=== PATIENT | female | born 1975 | race Caucasian/White ===

== ENCOUNTER → 2024-12-13 | Outpatient (CLI) | payer BC, SELFPAY ==
[2024-12-13 09:40] LABS: Basophils # (Auto) 0.1 Thou/mm3 (0.0-0.2); Basophils % (Auto) 1 % (0-2.5); Eosinophils # (Auto) 0.1 Thou/mm3 (0.0-0.5); Eosinophils % (Auto) 2 % (0-10); Hematocrit 41.1 % (36.0-46.0); Hemoglobin 14.1 g/dL (12.0-16.0); Immature Granulocytes % (Auto) 0 % (0-0); Immature Granulocytes Auto 0.01 Thou/mm3 (0.00-0.00); Lymphocytes # (Auto) 2.3 Thou/mm3 (1.0-4.8); Lymphocytes % (Auto) 37 % (10-50); Mean Corpuscular HGB Conc 34.3 g/dl (31.0-37.0); Mean Corpuscular Volume 85 fL (80-100); Monocytes # (Auto) 0.5 Thou/mm3 (0.0-0.8); Monocytes % (Auto) 8 % (0-12); Neutrophils # (Auto) 3.1 Thou/mm3 (1.8-7.7); Neutrophils % (Auto) 52 % (37-80); Nucleated Red Blood Cell % 0 /100 WBC (0); Platelet Count 288 Thou/mm3 (140-440); RDW Standard Deviation 37.8 fL (36.4-46.3); Red Blood Count 4.86 Miln/mm3 (4.00-5.20); White Blood Count 6.1 Thou/mm3 (3.6-11.0)
[2024-12-13 09:50] LABS: Glucose Estimated Average 91 mg/dL (80-131); Hemoglobin A1C 4.8 % Hgb (4.8-6.0)
[2024-12-13 09:54] LABS: Collection Type, Urine Clean Catch
[2024-12-13 10:01] LABS: Alanine Aminotransferase 16 U/L (10-49); Albumin, Serum 4.4 gm/dL (3.5-5.0); Albumin/Globulin Ratio 1.9 (1.2-2.2); Alkaline Phosphatase 78 U/L (46-116); Anion Gap 12 (7-16); Aspartate Amino Transferase 16 U/L (0-34); BUN/Creatinine Ratio 10 Ratio (12-20); Bilirubin,Total 0.4 mg/dL (0.3-1.2); Blood Urea Nitrogen 8 mg/dL (9-23); Calcium 8.7 mg/dL (8.3-10.6); Calcium (Corrected) 8.7 mg/dL (8.5-10.1); Carbon Dioxide 25.4 mMol/L (20.0-31.0); Cardiac Risk Estimate 4.2 RATIO (3.7-5.6); Chloride 106 mMol/L (98-107); Cholesterol 193 mg/dL (132-200); Creatinine (Component) 0.8 mg/dL (0.6-1.3); Globulin 2.3 gm/dL (2.3-3.5); Glucose 93 mg/dL (74-106); HDL Cholesterol 46 mg/dL (40-60); LDL Cholesterol,Calculated 115 mg/dL (0-130); Osmolality,Calculated 283 (275-295); Potassium 3.5 mMol/L (3.4-5.1); Sodium 143 mMol/L (136-145); Total Protein 6.7 gm/dL (5.7-8.2); Triglycerides 162 mg/dL (30-150); eGFR > 60 See Note
[2024-12-13 10:04] LABS: Vitamin B12 477 pg/mL (211-911)
[2024-12-13 10:22] LABS: Bilirubin,Urine Negative (Negative); Blood,Urine 2+ (Negative); Clarity,Urine Clear (Clear/Hazy); Color,Urine Lt-Yellow (Lt Yel-Yel); Glucose, Urine Negative (Negative); Ketones,Urine Negative (Negative); Leukocyte Esterase,Urine Negative (Negative); Nitrite,Urine Negative (Negative); Protein,Urine Negative (Neg - Trace); RBC,Urine 6 /hpf (0-3); Specific Gravity,Urine 1.017 (1.001-1.035); Squamous Epithelial Cell,Urine 3 /hpf (0-5); Urobilinogen,Urine Negative mg/dL (0.0-1.0); WBC,Urine 1 /hpf (0-5)
== END | disposition home or self-care (01) ==
LOC: COPL 09:12
PROVIDERS: PCP Internal Medicine; Referring Provider Internal Medicine; Visit Provider Internal Medicine
DX: I12.9 Hypertensive chronic kidney disease with stage 1 through stage 4 chronic kidney disease, or unspecified chronic kidney disease (principal); N81.4 Uterovaginal prolapse, unspecified; G25.81 Restless legs syndrome
CPT/HCPCS: 36415; 80053; 80061; 81001; 82607; 83036; 85025

== ENCOUNTER → 2025-01-14 | Outpatient (CLI) | payer BC, SELFPAY ==
--- NOTE | 2025-01-14 12:17 | XR_ITS ---
Examination: PA lateral chest 2 views TECHNIQUE: Upright PA lateral chest 2 views Date and time: January 14, 2025 1224 hours INDICATIONS: Coughing 3 days. FINDINGS: Normal heart size The lungs are clear. The osseous structures are intact IMPRESSION: No active disease
[2025-01-14 13:13] LABS: Basophils # (Auto) 0.1 Thou/mm3 (0.0-0.2); Basophils % (Auto) 1 % (0-2.5); Eosinophils # (Auto) 0.1 Thou/mm3 (0.0-0.5); Eosinophils % (Auto) 1 % (0-10); Hematocrit 44.6 % (36.0-46.0); Hemoglobin 15.0 g/dL (12.0-16.0); Immature Granulocytes Auto 0.02 Thou/mm3 (0.00-0.00); Lymphocytes # (Auto) 2.4 Thou/mm3 (1.0-4.8); Lymphocytes % (Auto) 30 % (10-50); Mean Corpuscular HGB Conc 33.6 g/dl (31.0-37.0); Mean Corpuscular Hemoglobin 28.6 pg (25.0-35.0); Mean Corpuscular Volume 85 fL (80-100); Monocytes # (Auto) 0.6 Thou/mm3 (0.0-0.8); Monocytes % (Auto) 8 % (0-12); Neutrophils # (Auto) 4.8 Thou/mm3 (1.8-7.7); Neutrophils % (Auto) 60 % (37-80); Nucleated Red Blood Cell # 0.00 Thou/mm3 (0.00-0.00); Nucleated Red Blood Cell % 0 /100 WBC (0); Platelet Count 313 Thou/mm3 (140-440); RDW Standard Deviation 37.5 fL (36.4-46.3); Red Blood Count 5.24 Miln/mm3 (4.00-5.20); White Blood Count 8.0 Thou/mm3 (3.6-11.0)
[2025-01-14 13:28] LABS: INR 0.9 (0.9-1.3); Partial Thromboplastin Time 26.8 Seconds (22.0-36.0); Prothrombin Time 10.4 Seconds (9.0-12.2)
[2025-01-14 13:39] LABS: Alanine Aminotransferase 22 U/L (10-49); Albumin, Serum 5.0 gm/dL (3.5-5.0); Albumin/Globulin Ratio 1.9 (1.2-2.2); Alkaline Phosphatase 85 U/L (46-116); Anion Gap 11 (7-16); Aspartate Amino Transferase 19 U/L (0-34); BUN/Creatinine Ratio 8 Ratio (12-20); Bilirubin,Total 0.3 mg/dL (0.3-1.2); Blood Urea Nitrogen 7 mg/dL (9-23); Calcium 9.6 mg/dL (8.3-10.6); Calcium (Corrected) 9.6 mg/dL (8.5-10.1); Carbon Dioxide 27.5 mMol/L (20.0-31.0); Chloride 104 mMol/L (98-107); Creatinine (Component) 0.9 mg/dL (0.6-1.3); Globulin 2.7 gm/dL (2.3-3.5); Glucose 106 mg/dL (74-106); Osmolality,Calculated 281 (275-295); Potassium 3.9 mMol/L (3.4-5.1); Sodium 142 mMol/L (136-145); Total Protein 7.7 gm/dL (5.7-8.2); eGFR > 60 See Note
== END | disposition home or self-care (01) ==
LOC: CDIM 12:14 → COPL 12:32
PROVIDERS: PCP Internal Medicine; Referring Provider Internal Medicine; Visit Provider Radiology Diagnostic Radiology
DX: R05.9 Cough, unspecified (principal); Z01.818 Encounter for other preprocedural examination; I12.9 Hypertensive chronic kidney disease with stage 1 through stage 4 chronic kidney disease, or unspecified chronic kidney disease; N81.4 Uterovaginal prolapse, unspecified; G25.81 Restless legs syndrome
CPT/HCPCS: 36415; 71046; 80053; 85025; 85610; 85730